=== PATIENT | female | born 1970 | race Caucasian/White ===

== ENCOUNTER → 2017-06-21 | Outpatient (CLI) | payer OTHER | LOC: M LRY 14:36 | PROVIDERS: ATTEND Nurse Practitioner Family | DX: R05 Cough (principal) ==

== ENCOUNTER → 2017-09-16 | Outpatient (CLI) | payer OTHER ==
[2017-09-20 08:09] LABS: I002-IgE HORNET, WHITE FACE <0.10 kU/L (Class 0); I003-IgE YELLOW JACKET 0.18 kU/L (Class 0/I); I004-IgE PAPER WASP 0.11 kU/L (Class 0/I); I005-IgE HORNET, YELLOW <0.10 kU/L (Class 0); IMMUNOGLOBULIN E, TOTAL 114 IU/mL (0-100)
== END ==
LOC: M SMT 10:20
DX: Z91.040 Latex allergy status (principal); Z91.038 Other insect allergy status
CPT/HCPCS: 82785

== ENCOUNTER 2019-04-12 06:01 | Day surgery (SDC) | payer OTHER ==
[~2019-04-12] VITALS: Ht 123.8 cm; Wt 131.8 kg
[~2019-04-12 06:01] MED LIST: ALBU83IN INH; ALBUTEROL SULFATE 2.5 MG/0.5 ML INH NEB SOLN INH ONE; LIDOCAINE 1% MDV 20ML VIAL SQ PRN; LR 1,000 ML IV ONE; LR 1,000 ML IV SCH; QC A650T3 PO; VENTAER INH; ceFAZolin SOD 2 GM in IV 1 EA IV ONE
[2019-04-12 06:31] LABS: HEMATOCRIT 44.5 % (36.0-47.0); HEMOGLOBIN 13.4 g/dl (12.0-15.5); MEAN CORPUSCULAR HGB CONC 30.1 g/dl (32.0-36.5); MEAN CORPUSCULAR VOLUME 79.6 fl (80.0-96.0); PLATELET COUNT, AUTOMATED 298 10^3/uL (150-450); RED BLOOD COUNT 5.59 10^6/uL (4.00-5.40); WHITE BLOOD COUNT 9.4 10^3/uL (4.0-10.0)
[2019-04-12 07:00] LABS: BLOOD UREA NITROGEN 9 MG/DL (7-18); CALCIUM LEVEL 9.3 MG/DL (8.5-10.1); CARBON DIOXIDE LEVEL 29 MEQ/L (21-32); CHLORIDE LEVEL 104 MEQ/L (98-107); CREATININE FOR GFR 0.92 MG/DL (0.55-1.30); GLOMERULAR FILTRATION RATE > 60.0 (>58); GLUCOSE, FASTING 93 MG/DL (70-100); POTASSIUM SERUM 3.7 MEQ/L (3.5-5.1); SODIUM LEVEL 140 MEQ/L (136-145)
[2019-04-12] MEDS ORDERED: ONDANSETRON 4MG/2ML VIAL (J2405) As Ordered ONE ×2 (07:00→10:19)
[2019-04-12] MEDS ORDERED: PROPOFOL 200 MG/20 ML VIAL As Ordered ONE ×2 (07:00→07:42)
[2019-04-12] MEDS ORDERED: LIDOCAINE 2% INJ 100 MG/5 ML SDV (FOR ANES.) As Ordered ONE (07:00)
[2019-04-12] MEDS ORDERED: ROCURONIUM BROMIDE 50 MG/5 ML VIAL As Ordered ONE ×3 (07:00→09:16)
[2019-04-12] MEDS ORDERED: dexameTHASONE 4 MG/ML 1ML VIAL (J1100) As Ordered ONE (07:00)
[2019-04-12] MEDS ORDERED: KETOROLAC 60 MG/2 ML VIAL (J1885) As Ordered ONE (07:00)
[2019-04-12] MEDS ORDERED: MIDAZOLAM INJ 2 MG/2 ML VIAL (J2250) As Ordered ONE (07:04)
[2019-04-12] MEDS ORDERED: fentaNYL 250 MCG/5 ML INJECTION (J3010) As Ordered ONE (07:04)
[2019-04-12] MEDS ORDERED: ACETAMINOPHEN 1000MG 100ML IV BTL (OFIRMEV) (J0131 PER 10MG) As Ordered ONE (07:09)
[2019-04-12] MEDS ORDERED: FLUORESCEIN 10% (100MG/ML) 5 ML VIAL As Ordered ONE (07:09)
[2019-04-12] MEDS ORDERED: BUPIVACAINE/EPIN 0.25% 30 ML VIAL As Ordered ONE (07:09)
[2019-04-12] MEDS ORDERED: LACRILUBE (AKWA TEARS) OPHTH OINT 3.5 GM As Ordered ONE (07:11)
[2019-04-12] MEDS: DOCUSATE SODIUM 100 MG CAP PO SCH ×2 (09:00→20:22)
[2019-04-12] MEDS ORDERED: SUGAMMADEX SODIUM 500 MG/5 ML VIAL (BRIDION) As Ordered ONE (09:26)
[2019-04-12] MEDS ORDERED: PERCOCET PO (09:57)
[2019-04-12] MEDS ORDERED: PERCOCET 5MG/325MG TAB PO PRN ×2 (10:00)
[2019-04-12] MEDS ORDERED: SIMETHICONE 80 MG CHEW TAB PO PRN ×2 (10:00→10:30)
[2019-04-12] MEDS ORDERED: ONDANSETRON 4MG/2ML VIAL (J2405) IV PRN ×2 (10:00→10:30)
[2019-04-12] MEDS ORDERED: fentaNYL 100 MCG/2 ML INJECTION (J3010) As Ordered ONE (10:26)
[2019-04-12] MEDS: fentaNYL 100 MCG/2 ML INJECTION (J3010) IV PRN ×4 (10:29→10:50)
[2019-04-12] MEDS ORDERED: oxyCODONE 5MG TAB PO PRN (10:30)
[2019-04-12] MEDS ORDERED: LR 1,000 ML IV SCH (10:30)
--- NOTE | 2019-04-12 11:01 | RO ---
DATE OF PROCEDURE: 04/12/2019 Lisa is a 48-year-old obese female with a history of heavy irregular cycle, dysmenorrhea, enlarged uterus and an ovarian cyst. After counseling in the office and again in the preop area, a decision was made to proceed with robotic-assisted total hysterectomy, bilateral salpingo-oophorectomy and cystoscopy. PREOPERATIVE DIAGNOSES: 1. Heavy irregular cycle. 2. Enlarged uterus. 3. Dysmenorrhea. 4. Ovarian cyst. POSTOPERATIVE DIAGNOSES: 1. Heavy irregular cycle. 2. Enlarged uterus. 3. Dysmenorrhea. 4. Ovarian cyst. PROCEDURE: 1. Robotic-assisted total hysterectomy. 2. Bilateral salpingo-oophorectomy. 3. Cystoscopy. SURGEON: Ezekiel Quick DO SECURITY SUPERVISOR: ANESTHESIA: General. COMPLICATIONS: None. ESTIMATED BLOOD LOSS: Less than 50 mL. SPECIMEN SENT TO PATHOLOGY: Uterus, cervix, tubes and ovaries, as well as the ovarian cyst. PROCEDURE: After reaffirming informed consent in the preop area with the patient, she was then taken to the operating room where general anesthetic was found to be adequate. She was then draped and prepped in the usual sterile fashion in the dorsal lithotomy position. At this point, a Stanley catheter was placed in the bladder for drainage. We then placed a HUMI II uterine manipulator. My attention was then turned to the abdomen where a Veress needle was inserted and the abdomen was infiltrated with CO2 gas to approximately 3.5 liters. At this point, an 8 mm supraumbilical incision was made for the robotic camera the trocar was placed under direct visualization. Then two 8 mm left lateral ports were placed under direct visualization and a right 8 mm lateral port was also placed under direct visualization. These ports were for robotic arm one, two and the assist port. The patient was placed in steep Trendelenburg. The robot was brought to the patient's right side. The robot was docked in the usual fashion. Targeting was performed. After passing the targeting process, the instruments were then placed. A vessel sealer was placed in arm one and the bipolar grasper in arm two. I then on scrubbing went to the surgeon console and began the surgery. The pelvis and abdomen was inspected. The uterus was found to be enlarged to approximately 11-12 cm in size. I then identified the infundibulopelvic ligament on the right. This was cauterized and cut using the vessel sealer. Serial bites were then taken all the way down to the uterine arteries. The opposite side was done in a similar fashion. I then created a bladder flap anteriorly and posteriorly. The bladder pushed completely out of the operative field after securing the uterine on both side. The vessel sealer was removed and Endo Shear was placed. Anterior and posterior colpotomy was then performed. The uterus as well as both tubes and ovaries as well as the ovarian cyst was removed through the vagina. A moistened sponge lap was placed in the vagina to maintain pneumoperitoneum. 1 mL of Furacin was given by the anesthesiologist to help with cystoscopy. I then removed the vessel sealer and needle lunch truck driver was placed. A #2-0 V-Loc suture was used and the vaginal cuff was then closed in a running fashion using the V-Loc suture. The peritoneum over the vaginal cuff was also closed. Pelvis copiously irrigated with normal saline and suctioned out. Good hemostasis noted. No evidence of any bladder or ureteral injury noted. At this point, I rescrubbed, retrograde filled the bladder with approximately 230 mL of normal saline. Cystoscopy was performed. Bilateral ureteral jets were noted. No evidence of any bladder injury or urethral injury noted. At this point, the cystoscope was removed. The Stanley catheter was replaced back in the bladder. The robot was completely undocked and the robotic ports were then closed using #4-0 Vicryl in a subcuticular fashion. 0.25% Marcaine was placed for postoperative pain. The patient tolerated procedure well. She was then transferred to the recovery room in stable condition.
[2019-04-12] MEDS ORDERED: oxyCODONE 5MG TAB As Ordered ONE (11:18)
[2019-04-12 12:15] VITALS: BP 130/84
[2019-04-12 12:45] VITALS: BP 126/86
[2019-04-12 13:15] VITALS: BP 127/86
[2019-04-12] MEDS: LR 1,000 ML IV SCH ×2 (13:34→17:50)
[2019-04-12 14:15] VITALS: BP 128/85
[2019-04-12 18:00] VITALS: BP 127/85
[2019-04-12 22:00] VITALS: BP 131/87
[2019-04-13] MEDS: LR 1,000 ML IV SCH ×3 (00:06→08:17)
[2019-04-13 02:00] VITALS: BP 130/79
[2019-04-13] MEDS: ACETAMINOPHEN TAB 650MG DOSE (2X325MG) PO PRN ×2 (05:02→08:02)
[2019-04-13 06:00] VITALS: BP 130/76
[2019-04-13] MEDS: DOCUSATE SODIUM 100 MG CAP PO SCH (08:02)
[2019-04-13 10:00] VITALS: BP 134/77
[2019-04-13] MEDS ORDERED: IBUPROFEN 800 MG TAB PO SCH (12:00)
== END 2019-04-13 13:12 | disposition home or self-care (01) ==
LOC: M SDC 06:01 → M MSPAV 12:00 → M SDC 04-13 13:12
PROVIDERS: ATTEND Obstetrics & Gynecology
DX: N92.1 Excessive and frequent menstruation with irregular cycle (principal); N94.6 Dysmenorrhea, unspecified; N85.2 Hypertrophy of uterus; N72 Inflammatory disease of cervix uteri; J45.909 Unspecified asthma, uncomplicated; G47.30 Sleep apnea, unspecified; K21.9 Gastro-esophageal reflux disease without esophagitis; G43.909 Migraine, unspecified, not intractable, without status migrainosus; Z79.51 Long term (current) use of inhaled steroids; Z88.2 Allergy status to sulfonamides; Z91.030 Bee allergy status; Z91.040 Latex allergy status; Z91.013 Allergy to seafood; Z91.041 Radiographic dye allergy status
CPT/HCPCS: 36415; 58571; 80048; 85027; 86850; 86900; 86901; 88307; 96360; 96361; J0131; J0690; J1100; J1885; J2250; J2405; J3010